=== PATIENT | male | born 1950 | race African-American/Black ===

== ENCOUNTER 2016-10-30 06:46 | Day surgery (SDC) | payer OTHER ==
[~2016-10-30] VITALS: Ht 190.5 cm; Wt 78.4 kg
[~2016-10-30 06:46] MED LIST: ASPI325T PO; BUSP5 PO; DOXE25CA2 PO; ECHI1CAP2 PO; FISH120014 PO; GABA300C3 PO; GLUCTAB PO; HYDRO50 PO; METF-324 PO; NORC7.5T PO; PRAV80 PO
[2016-10-30] MEDS ORDERED: diphenhydrAMINE HCL 50 MG CAP PO SCH (07:30)
[2016-10-30] MEDS ORDERED: NS 1000P @30 MLS/HR (KVO) IV SCH (07:30)
[2016-10-30] MEDS ORDERED: BUSP10TA PO (07:52)
[2016-10-30] MEDS ORDERED: GABA300C5 PO (07:52)
[2016-10-30] MEDS ORDERED: VITA400C2 PO (07:52)
[2016-10-30] MEDS ORDERED: SERT-129 PO (07:52)
[2016-10-30] MEDS ORDERED: VIAG100T PO (07:52)
[2016-10-30] MEDS ORDERED: PENT400T PO (07:52)
[2016-10-30] MEDS ORDERED: HYDR-3534 PO (07:52)
[2016-10-30] MEDS ORDERED: METF850T PO (07:52)
[2016-10-30] MEDS ORDERED: VITA100L BUCCAL (07:52)
[2016-10-30] MEDS ORDERED: HYDR50TA94 PO (07:52)
[2016-10-30] MEDS ORDERED: PRAV40TA2 PO (07:52)
[2016-10-30] MEDS ORDERED: DOXE25CA2 PO (07:52)
[2016-10-30] MEDS ORDERED: ASPI81TA11 PO (07:52)
[2016-10-30 07:59] VITALS: BP 147/82; PULSE 66; RESP 16; TEMP 97.6; O2SAT 99
[2016-10-30 08:00] LABS: AUTOMATED NEUTROPHIL # 2.2 TH/MM3 (1.8-7.7); BASOPHIL % 0.6 % (0.0-2.0); EOSINOPHIL # 0.2 TH/MM3 (0-0.4); EOSINOPHIL % 3.8 % (0.0-4.0); HEMATOCRIT 40.3 % (39.0-51.0); HEMO FLAGS DIFF FINAL; LYMPH % 32.6 % (9.0-44.0); LYMPHOCYTE # 1.3 TH/MM3 (1.0-4.8); MEAN CELL VOLUME 92.6 FL (80.0-100.0); MEAN CORPUSCULAR HGB CONC 34.6 % (32.0-36.0); MONO % 8.1 % (0.0-8.0); NEUT % 54.9 % (16.0-70.0); PLATELET COUNT 198 TH/MM3 (150-450); RED BLOOD COUNT 4.36 MIL/MM3 (4.50-5.90); RED CELL DISTRIBUTION WIDTH 13.9 % (11.6-17.2)
[2016-10-30 08:09] LABS: APTT (PATIENT) 28.2 SEC (24.3-30.1); PROTHROMBIN TIME - PATIENT 11.4 SEC (9.8-11.6)
[2016-10-30 08:22] LABS: BICARBONATE 28.4 MEQ/L (21.0-32.0); POTASSIUM 4.7 MEQ/L (3.5-5.1)
[2016-10-30] MEDS ORDERED: MIDAZOLAM HCL 2 MG/2 ML VIAL ONE (08:46)
[2016-10-30] MEDS ORDERED: HEPARIN-NS/PF INJ 500 ML ONE (08:46)
[2016-10-30] MEDS ORDERED: ADENOSINE STRESS TEST INJ 90 MG/30 ML VIAL ONE (10:09)
[2016-10-30] MEDS ORDERED: HEPARIN SODIUM - IV 10,000 UNITS/10 ML VIAL ONE (10:17)
[2016-10-30] MEDS ORDERED: hydrOXYzine HCL 50 MG TAB PO ONE (11:45)
[2016-10-30] MEDS ORDERED: ACETAMINOPHEN/HYDROcodone 325 MG/7.5 MG TAB PO PRN (11:45)
[2016-10-30] MEDS ORDERED: IOHEXOL 350 MG/ML 100 ML BTL (for Cath Lab) OTHER ONE (11:53)
[2016-10-30] MEDS ORDERED: GABAPENTIN 300 MG CAP PO SCH (13:00)
[2016-10-30] MEDS ORDERED: busPIRone HCL 10 MG TAB PO SCH (13:00)
[2016-10-30] MEDS ORDERED: PENTOXIFYLLINE 400 MG CONTROLLED RELEASE TAB PO SCH (13:00)
--- NOTE | 2016-10-30 14:30 | MA ---
cc: FRANASIA Eddy DATE: 10/30/2016 DATE OF : 1950 PROCEDURE PERFORMED 1. Left heart catheterization, 2. Selective right and left coronary angiography, 3. FFR of the left circumflex artery. INDICATION Positive stress test showing reversible inferior ischemia, and symptoms of angina. PROCEDURE DESCRIPTION Consent signed. The patient was brought into the cardiac labor employment associate in a fasting state. The right groin was prepped and draped in a sterile fashion. Using 1% lidocaine for local anesthesia and a micropuncture kit a 5-Danish sheath was inserted into the into the right common femoral artery. Right common femoral artery angiography was performed to confirm the position of the sheath. Selective right and left coronary angiography was performed with JR4 and JL4 diagnostic catheters. Angiography was taken in multiple views. The JR diagnostic catheter was used to get into the ventricle followed by recording hemodynamics and pullback. There was 70% visual lesion in the distal circumflex and 90% lesion in a small proximal ramus vessel. We decided to FFR of the lesion in the circumflex. For this we exchanged the 5-Danish groin sheath for a 6-Danish sheath. Heparin was given for anticoagulation. The left main was engaged with an XB 3.5 guide. The FFR pressure wire was normalized outside the vessel and was introduced to the left circumflex which was wired without complications. This was followed by an infusion of IV adenosine for FFR. The FFR value was 0.88, thus no intervention was performed. The patient tolerated the procedure well without complications. Estimated blood loss less than 30 cc. Total contrast used 80 cc. The right groin access site was closed with an Angio-Seal device. RESULTS LEFT VENTRICLE The left ventricular pressure was 175/45 with an LVEDP of 33. The aortic pressure was 176/86 with a mean of 122. ANGIOGRAPHY 1. The right coronary artery is dominant giving off a PDA, has minimal luminal irregularities, nonobstructive CAD and ANGEL-III flow. 2. The left main has an eccentric 30% lesion in its midsegment. 3. The left anterior descending artery has minimal luminal irregularities throughout. It is a transapical vessel, has a prominent S1 and second diagonal which are both patent with nonobstructive CAD and ANGEL-III flow. 4. The left circumflex artery has a 60% lesion distally with ANGEL-III flow, nonobstructive CAD. OM1 is all patent. 5. The ramus vessel is a small vessel measuring less than 1.5 mm. It has an ostial 80% concentric lesion. CONCLUSIONS 1. One-vessel CAD, small ramus with an 90% lesion proximally, not amenable for intervention given small size. 2. Elevated LVEDP. RECOMMENDATIONS 1. Aggressive medical management for CAD. 2. Post cath care. 3. IV hydration post cath, 125 cc an hour for the next four hours. MD ADRIENNE Costa/MARIO /10:38 AM /2:13 PM MTDD
--- NOTE | 2016-10-30 16:14 | EKG ---
Date Performed: 10/30/2016 Time Performed: 07:37:46 PTAGE: 66 years EKG: Sinus rhythm Normal ECG PREVIOUS TRACING : 07/09/2016 05.51 Compared to prior tracing no significant change DOCTOR: Eren Hdz Interpretating Date/Time 10/30/2016 16:13:52
[2016-10-30] MEDS ORDERED: DOXEPIN HCL 25 MG CAP PO SCH (21:00)
[2016-10-30] MEDS ORDERED: PRAVASTATIN SOD 40 MG TAB PO SCH (21:00)
[2016-10-31] MEDS ORDERED: ASPIRIN EC 81 MG TABEC PO SCH (09:00)
[2016-10-31] MEDS ORDERED: SERTRALINE HCL 100 MG TAB PO SCH (09:00)
[2016-10-31] MEDS ORDERED: VITAMIN E 400 UNIT CAP PO SCH (09:00)
[2016-10-31] MEDS ORDERED: CYANOCOBALAMIN 100 MCG TAB PO SCH (09:00)
== END 2016-10-30 15:07 | disposition home or self-care (01) ==
LOC: HDIC 06:46 → HDOC 06:46
PROVIDERS: ATTEND Radiology Vascular & Interventional Radiology
DX: I25.119 Atherosclerotic heart disease of native coronary artery with unspecified angina pectoris (principal); I73.9 Peripheral vascular disease, unspecified; E78.00 Pure hypercholesterolemia, unspecified; E78.5 Hyperlipidemia, unspecified; F43.10 Post-traumatic stress disorder, unspecified; E11.9 Type 2 diabetes mellitus without complications; Z79.84 Long term (current) use of oral hypoglycemic drugs
CPT/HCPCS: 80048; 85025; 85610; 85730; 93005; 93454; 93571; C1760; C1769; C1887; C1893; G0269; J0153; J1644; J2250; J3010; J7030; Q0163; Q9967

== ENCOUNTER 2017-06-18 22:01 | Emergency (ER) | payer OTHER ==
[~2017-06-18] VITALS: Ht 190.5 cm; Wt 80.0 kg
[~2017-06-18 22:01] MED LIST changes: -ASPI325T PO; +ASPI81TA11 PO; +BUSP10TA PO; -BUSP5 PO; -ECHI1CAP2 PO; -FISH120014 PO; -GABA300C3 PO; +GABA300C5 PO; -GLUCTAB PO; +HYDR-3534 PO; +HYDR50TA94 PO; -HYDRO50 PO; -METF-324 PO; +METF850T PO; -NORC7.5T PO; +PENT400T PO; +PRAV40TA2 PO; -PRAV80 PO; +SERT-129 PO; +VIAG100T PO; +VITA100L BUCCAL; +VITA400C2 PO
[2017-06-18 22:02] VITALS: BP 155/114; PULSE 99; RESP 16; TEMP 99.4; O2SAT 98
--- NOTE | 2017-06-18 22:22 | PD ---
HPI Chief Complaint: Injury Time Seen by Provider: 22:19 Travel History International Travel<30 days: No Contact w/Intl Traveler<30days: No Traveled to known affect area: No History of Present Illness HPI 67-year-old male presents to emergency department for evaluation left foot pain. Patient states that he tripped on something sustaining a left foot injury. States she rolled over his foot earlier today and since then the pain has gotten worse. He states he is unable to sleep due to the pain, and is constant, throbbing mostly in the dorsal aspect of the foot no for the left great toe. Denies any alterations in sensation. Movement exacerbates the pain. No other symptoms to report. PFSH Past Medical History Heart Rhythm Problems: No Cancer: No Cardiac Catheterization: No Cardiovascular Problems: Yes (hyperlipidemia) High Cholesterol: Yes Chest Pain: Yes Congestive Heart Failure: No Diabetes: Yes Patient Takes Glucophage: No Gastrointestinal Disorders: No Glaucoma: No Genitourinary: No Hepatitis: No Hiatal Hernia: No Hypertension: No Immune Disorder: No Reproductive: No Respiratory: No Thyroid Disease: No ?: Not Past Surgical History Coronary Artery Bypass Graft: No Thoracic Surgery: No Other Surgery: Yes (R FEM POP/R HAND DIGIT SX; STINTS IN LEGS) Social History Alcohol Use: Yes (daily) Tobacco Use: Yes (2 ppd) Substance Use: Yes (MARIJUANA) Allergies-Medications (Allergen,Severity, Reaction): Coded Allergies: No Known Allergies (Verified , 10/30/16) Reported Meds & Prescriptions Reported Meds & Active Scripts Active Reported Viagra (Sildenafil Citrate) 100 Mg Tab 100 Mg PO DIRECTED PRN Sertraline (Sertraline HCl) 100 Mg Tab 100 Mg PO DAILY Pravastatin 40 Mg Tab 40 Mg PO HS Pentoxifylline ER (Pentoxifylline) 400 Mg Tab 400 Mg PO TID Metformin (Metformin HCl) 850 Mg Tab 850 Mg PO TIDPC With meals Lortab (Hydrocodone-Acetaminophen) 7.5-325 Mg Tab 1 Tab PO Q6H PRN Hydroxyzine HCl 50 Mg Tab 50 Mg PO QID Gabapentin 300 Mg Cap 300 Mg PO TID Doxepin (Doxepin HCl) 25 Mg Cap 25 Mg PO HS Buspirone (Buspirone HCl) 10 Mg Tab 10 Mg PO TID Aspirin EC (Aspirin) 81 Mg Tabdr 81 Mg PO DAILY Review of Systems Except as stated in HPI: all other systems reviewed are Neg Physical Exam Narrative GENERAL: Well-nourished, well-developed patient in no acute distress SKIN: Focused skin assessment warm/dry. HEAD: Normocephalic. EYES: No scleral icterus. No injection or drainage. NECK: Supple, trachea midline. No JVD or lymphadenopathy. CARDIOVASCULAR: Regular rate and rhythm without murmurs, gallops, or rubs. RESPIRATORY: Breath sounds equal bilaterally. No accessory muscle use. MUSCULOSKELETAL: No cyanosis. Mild edema to the dorsal aspect of the distal left foot, primarily over the first MCP joint and toe. Distal pulses are palpable. Cap refill within normal limits. No obvious deformity. Data Data Last Documented VS Vital Signs Date Time Temp Pulse Resp B/P (MAP) Pulse Ox O2 Delivery O2 Flow Rate FiO2 06/18/17 23:10 06/18/17 22:02 99.4 99 16 98 Room Air Orders Orders Foot, Complete ([id number]) (06/18/17 ) Ketorolac Inj (Toradol Inj) (06/18/17 23:15) Rehan Bandage (06/18/17 23:08) MDM Medical Decision Making Medical Screen Exam Complete: Yes Emergency Medical Condition: Yes Medical Record Reviewed: Yes Differential Diagnosis Contusion versus sprain versus dislocation versus gout versus pseudogout fracture Narrative Course 67-year-old male presents emergency parent for evaluation left foot pain. Patient appears without distress. That extremity is neurovascularly intact. Last Impressions Foot X-Ray 06/18/17 0000 Signed Impressions: Service Date/Time: Sunday, June 18, 2017 22:16 - CONCLUSION: No fracture or subluxation of the left foot. Chronic findings as above. Malcom Lawler MD Patient is placed in an Rehan wrap and counseled on care. He already has pain control at home which she is advised to take as prescribed. He agrees to return immediately with any acute worsening of symptoms. Diagnosis Primary Impression: Foot contusion Qualified Codes: S90.32XA - Contusion of left foot, initial encounter Referrals: Primary Care Physician Patient Instructions: Foot Contusion (ED), General Instructions Additional Instructions: Ice and elevate to reduce pain and swelling Rehan wrap for support Follow up with a primary care provider Return immediately with acute worsening of symptoms Med/Other Pt SpecificInfo: Prescription(s) given Disposition: 01 DISCHARGE HOME Condition: Stable Susan Beckman Jun 18, 2017 22:22
--- NOTE | 2017-06-18 22:59 | RADRPT ---
EXAM DATE/TIME: 06/18/2017 22:16 [facility] COMPARISON: No previous studies available for comparison. INDICATIONS : Left foot pain (dorsal side) MEDICAL HISTORY : SURGICAL HISTORY : ORIF right wrist ENCOUNTER: Initial ACUITY: 1 day PAIN SCORE: 5/10 LOCATION: Left foot FINDINGS: No fracture or subluxation is seen of the left foot. Patient has mild to moderate hallux valgus. 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 There is a small moderate heel spur. Anatomic variant os peroneum noted. 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 CONCLUSION: No fracture or subluxation of the left foot. Chronic findings as above. Malcom Lawler MD on June 18, 2017 at 22:56 Board Certified Radiologist. This report was verified electronically.
[2017-06-18] MEDS ORDERED: KETOROLAC TROMETHAMINE 60 MG/2 ML (IM) VIAL IM ONE (23:15)
== END 2017-06-18 23:30 | disposition home or self-care (01) ==
LOC: NEPD 22:01
DX: S90.32XA Contusion of left foot, initial encounter (principal); W18.40XA Slipping, tripping and stumbling without falling, unspecified, initial encounter
CPT/HCPCS: 73630; 96372; 99284; J1885